=== PATIENT | male | born 1955 | race Caucasian/White ===

== ENCOUNTER 2016-11-18 22:41 | Emergency (ER) | payer BC ==
[2016-11-18 22:48] VITALS: BP 161/84; PULSE 72; RESP 16; TEMP 98.4
[2016-11-18] MEDS ORDERED: HYDROcodone/APAP 5-325MG 1 EACH TAB PO STA (23:02)
[2016-11-18] MEDS ORDERED: AMOXIC-POT CLAV 875MG STARTER 2 EACH TABLET PO STA (23:02)
--- NOTE | 2016-11-18 23:07 | ED ---
General Adult HPI - General Chief complaint: Animal Bite Stated complaint: Dog Bite Time Seen by Provider: 11/18/16 22:53 Source: patient, RN notes reviewed Mode of arrival: ambulatory Limitations: no limitations - History of Present Illness Initial comments: 61-year-old male presents to the emergency 5 chief complaint of left forearm dog bite. Patient states he was breaking up his dog's from Saturday he got bit to the arm. Patient states his dog is up-to-date on vaccinations. Patient states he is at [place] tetanus. Patient states he has pain around the arm. Patient denies any change in range of motion. Patient states moderate there is no radiation patient denies any weakness to the arm. Patient states he was concerned about infection so he thought that he should be evaluated. Patient denies any recent fever, chills, shortness of breath, chest pain, back pain, abdominal pain, nausea vomiting, numbness or tingling, dysuria or hematuria, constipation or diarrhea, headaches or visual changes, or any other current symptoms. - Related Data Previous Rx's Medication Instructions Recorded Amoxicillin/Potassium Clav 1 tab PO Q12HR #20 tab 11/18/16 [Augmentin 875-125 Tablet] Allergies Allergy/AdvReac Type Severity Reaction Status Date / Time No Known Allergies Allergy Verified 11/18/16 22:47 Review of Systems ROS Statement: Those systems with pertinent positive or pertinent negative responses have been documented in the HPI. ROS Other: All systems not noted in ROS Statement are negative. Past Medical History Past Medical History: Hypertension, Myocardial Infarction ([place]) History of Any Multi-Drug Resistant Organisms: None Reported Past Surgical History: Heart Catheterization With Stent Additional Past Surgical History / Comment(s): sinuses, deviated septum, skin graft of finger. Past Psychological History: No Psychological Hx Reported Smoking Status: Never smoker Past Alcohol Use History: None Reported Past Drug Use History: None Reported General Exam - General Exam Comments Initial Comments: General: The patient is awake and alert, in no distress, and does not appear acutely ill. Neck: The neck is supple, there is no tenderness. Cardiovascular: There is a regular rate and rhythm. No murmur, rub or gallop is appreciated. Respiratory: Lungs are clear to auscultation, respirations are non-labored, breath sounds are equal. No wheezes, stridor, rales, or rhonchi. Musculoskeletal: Full range of motion of left wrist and left forearm sensation intact with 2+ pulses. Left upper extremity. Patient appears to have 4 puncture wounds on left forearm and a 4 cm laceration to the left forearm. Neurological: CN II-XII intact, There are no obvious motor or sensory deficits. Coordination appears grossly intact. Speech is normal. Skin: Skin is warm and dry and no rashes or lesions are noted. Psychiatric: Normal mood and affect. Limitations: no limitations Course Vital Signs 11/18/16 22:43 Temperature 98.4 F Pulse Rate 72 Respiratory 16 Rate Blood Pressure 161/84 O2 Sat by Pulse 98 Oximetry Medical Decision Making - Medical Decision Making 61-year-old male presents for diabetic to left arm. Patient underwent irrigation to the left forearm. At this time patient's laceration is superficial not requiring suturing and point wounds were thoroughly clean. This and we will start patient on Augmentin for home. We discussed follow-up with his doctor we discussed return parameters. We discussed x-ray results and follow-up and all questions. He stated that he understood this plan. This time we will be discharged home. - Radiology Data Radiology results: image reviewed Interpreted by me: Interpreted by me: Left forearm xray: 2 view, no fracture, no dislocation, no bony lesions, no radiopaque foreign bodies, no soft tissue damage. Waiting official radiology read. Disposition Clinical Impression: Dog bite of left forearm Disposition: HOME SELF-CARE Condition: Stable Instructions: Animal Bite (ED) Additional Instructions: Please use medication as discussed. Please follow up with family doctor if symptoms have not improved over the next two days. Please return to the emergency room if your symptoms increase or worsen or for any other concerns. Prescriptions: Amoxicillin/Potassium Clav [Augmentin 875-125 Tablet] 1 tab PO Q12HR #20 tab Referrals: Ken Lima MD [STAFF PHYSICIAN] - 1-2 days Time of Disposition: 23:32
--- NOTE | 2016-11-18 23:36 | XR ---
Exam: XR LEFT FOREARM History: Pain. Dog bite to mid left forearm. Comparison: None provided. Technique: 2 views. Findings: No acute displaced fracture or dislocation. No radiopaque foreign body appreciated. There is prominent subcutaneous edema overlying the forearm. Questionable emphysema of the soft tissues. Impression: Findings suggesting infection such as cellulitis. Question soft tissue emphysema. Consider cross-sectional imaging with contrast and there is high clinical concern for underlying abscess or gas forming infection.
== END 2016-11-18 23:50 | disposition home or self-care (01) ==
LOC: EC 22:41
DX: S51.852A Open bite of left forearm, initial encounter (principal); W54.0XXA Bitten by dog, initial encounter; Y93.89 Activity, other specified
CPT/HCPCS: 99283

== ENCOUNTER → 2018-06-27 | Outpatient (CLI) | payer SELFPAY ==
[2018-06-30 11:01] LABS: LDL Cholesterol,Calculated 59.2; VLDL Calculation 18.8
== END | disposition home or self-care (01) ==
LOC: LABWHC1 09:43
PROVIDERS: ATTEND Nurse Practitioner Adult Health
DX: E78.00 Pure hypercholesterolemia, unspecified (principal)
CPT/HCPCS: 36415; 80061

== ENCOUNTER 2021-02-09 12:45 | Emergency (ER) | payer OTHER ==
[2021-02-09 13:24] VITALS: PULSE 57; RESP 18; TEMP 98
[2021-02-09] MEDS ORDERED: SODIUM CHLORIDE 0.9% 1,000 ML IV STA (13:58)
--- NOTE | 2021-02-09 14:00 | ED ---
General Adult HPI - General Chief complaint: Extremity Injury, Upper Stated complaint: lt shoulder pain, SOB Time Seen by Provider: 02/09/21 13:43 Source: patient Mode of arrival: ambulatory Limitations: no limitations - History of Present Illness Initial comments: 65-year-old male with a past medical history of hypertension, [place] presents to the emergency room for a chief complaint of high blood pressure and left shoulder pain. Patient states his blood pressure has been higher over the past few days. He has been taking his medication as directed however he has been taking it several times a day and it seems a higher than normal. Patient states he was going to go see his primary care doctor for this but when he woke up this morning he had left shoulder pain. He does not recall injuring the shoulder. He denies any chest pain or shortness of breath. Patient has no other complaints at this time including shortness of breath, chest pain, abdominal pain, nausea or vomiting, headache, or visual changes. - Related Data Home Medications Medication Instructions Recorded Confirmed Aspirin 81 mg PO DAILY 11/10/19 11/10/19 Furosemide [Lasix] 40 mg PO DAILY 11/10/19 11/10/19 Metoprolol Tartrate [Lopressor] 100 mg PO BID 11/10/19 11/10/19 Pravastatin Sodium [Pravachol] 40 mg PO DAILY 11/10/19 11/10/19 Spironolactone 25 mg PO DAILY 11/10/19 11/10/19 amLODIPine BESYLATE 5 mg PO BID 11/10/19 11/10/19 Allergies Allergy/AdvReac Type Severity Reaction Status Date / Time No Known Allergies Allergy Verified 02/09/21 13:21 Review of Systems ROS Statement: Those systems with pertinent positive or pertinent negative responses have been documented in the HPI. ROS Other: All systems not noted in ROS Statement are negative. Past Medical History Past Medical History: Hypertension, Myocardial Infarction ([place]) Last Myocardial Infarction Date:: 2003 History of Any Multi-Drug Resistant Organisms: None Reported Past Surgical History: Heart Catheterization With Stent Additional Past Surgical History / Comment(s): sinuses, deviated septum, skin graft of finger,heart stent x1 Past Anesthesia/Blood Transfusion Reactions: No Reported Reaction Additional Past Anesthesia/Blood Transfusion Reaction / Comment(s): no hx blood transfusion Date of Last Stent Placement:: 2003 Past Psychological History: No Psychological Hx Reported Smoking Status: Never smoker Past Alcohol Use History: None Reported Past Drug Use History: None Reported - Past Family History Mother Family Medical History: No Reported History Father Family Medical History: Cancer Additional Family Medical History / Comment(s): skin CA General Exam Limitations: no limitations General appearance: alert, in no apparent distress Head exam: Present: atraumatic Eye exam: Present: normal appearance, PERRL, EOMI. Absent: scleral icterus ENT exam: Present: normal exam, mucous membranes moist Neck exam: Present: normal inspection, full ROM. Absent: tenderness Respiratory exam: Present: normal lung sounds bilaterally. Absent: respiratory distress, wheezes Cardiovascular Exam: Present: regular rate, normal rhythm, normal heart sounds GI/Abdominal exam: Present: soft, normal bowel sounds. Absent: distended, tenderness Extremities exam: Present: full ROM (Full range of motion of the left shoulder), normal capillary refill (Blurry refill less than 2 seconds, radial pulse 2+ left upper extremity). Absent: tenderness Course Vital Signs 02/09/21 13:21 Temperature 98 F Pulse Rate 57 L Respiratory 18 Rate Blood Pressure 151/94 O2 Sat by Pulse 97 Oximetry EKG Findings - EKG Comments: EKG Findings:: Sinus bradycardia, ventricular rate 57, NE interval 292, QTc 451 Medical Decision Making - Medical Decision Making Vitals are stable. Patient is mildly hypertensive. Patient states pain has resolved and he is not having any shoulder pain at this time. Full range of motion. EKG nonischemic. CBC CMP unremarkable. Troponin is negative. Chest x-ray shows no acute cardiopulmonary process. At this time patient is stable for discharge home. He'll follow-up with his doctor. He'll return for any worsening symptoms. - Lab Data Result diagrams: 02/09/21 14:14 02/09/21 14:14 Lab Results 02/09/21 02/09/21 02/09/21 Range/Units 14:14 14:14 14:14 WBC 6.8 (3.8-10.6) k/uL RBC 5.05 (4.30-5.90) m/uL Hgb 16.1 (13.0-17.5) gm/dL Hct 47.0 (39.0-53.0) % MCV 93.2 (80.0-100.0) fL MCH 32.0 (25.0-35.0) pg MCHC 34.4 (31.0-37.0) g/dL RDW 12.2 (11.5-15.5) % Plt Count 198 (150-450) k/uL MPV 7.7 Neutrophils % 70 % Lymphocytes % 20 % Monocytes % 5 % Eosinophils % 3 % Basophils % 1 % Neutrophils # 4.7 (1.3-7.7) k/uL Lymphocytes # 1.4 (1.0-4.8) k/uL Monocytes # 0.3 (0-1.0) k/uL Eosinophils # 0.2 (0-0.7) k/uL Basophils # 0.1 (0-0.2) k/uL Sodium 139 (137-145) mmol/L Potassium 4.7 (3.5-5.1) mmol/L Chloride 108 H (98-107) mmol/L Carbon Dioxide 21 L (22-30) mmol/L Anion Gap 10 mmol/L BUN 15 (9-20) mg/dL Creatinine 0.92 (0.66-1.25) mg/dL Est GFR (CKD-EPI)AfAm >90 (>60 ml/min/1.73 sqM) Est GFR (CKD-EPI)NonAf 88 (>60 ml/min/1.73 sqM) Glucose 91 (74-99) mg/dL Calcium 9.3 (8.4-10.2) mg/dL Total Bilirubin 1.6 H (0.2-1.3) mg/dL AST 30 (17-59) U/L ALT 20 (4-49) U/L Alkaline Phosphatase 70 (38-126) U/L Troponin I <0.012 (0.000-0.034) ng/mL Total Protein 8.2 (6.3-8.2) g/dL Albumin 4.6 (3.5-5.0) g/dL Disposition Clinical Impression: Hypertension, Shoulder pain, left Disposition: HOME SELF-CARE Condition: Good Instructions (If sedation given, give patient instructions): Chronic Hypertension (ED) Additional Instructions: Please follow-up with your primary care provider and take them a log of your blood pressures. If you have any worsening symptoms such as chest pain or short ness of breath return to the emergency room. Is patient prescribed a controlled substance at d/c from ED?: No Referrals: Brianna Downing MD [REFERRING] - 1-2 days Time of Disposition: 15:48
[2021-02-09 14:28] LABS: Basophils # (A) 0.1 k/uL (0-0.2); Basophils % (A) 1 %; Eosinophils # (A) 0.2 k/uL (0-0.7); Eosinophils % (A) 3 %; HGB 16.1 gm/dL (13.0-17.5); Lymphocytes # (A) 1.4 k/uL (1.0-4.8); Lymphocytes % (A) 20 %; MCHC 34.4 g/dL (31.0-37.0); MCV 93.2 fL (80.0-100.0); Mean Platelet Volume 7.7; Monocytes # (A) 0.3 k/uL (0-1.0); Monocytes % (A) 5 %; Neutrophils # (A) 4.7 k/uL (1.3-7.7); Neutrophils % (A) 70 %; Platelet Count 198 k/uL (150-450); RBC 5.05 m/uL (4.30-5.90); RDW 12.2 % (11.5-15.5); WBC 6.8 k/uL (3.8-10.6)
--- NOTE | 2021-02-09 14:34 | XR ---
EXAMINATION TYPE: XR chest 2V DATE OF EXAM: 02/09/2021 COMPARISON: Chest x-ray 11/21/2011 HISTORY: Shoulder pain, hypertension TECHNIQUE: Frontal and lateral views of the chest are obtained. FINDINGS: There is no focal air space opacity, pleural effusion, or pneumothorax seen. The cardiac silhouette size is within normal limits. The osseous structures are intact other thoracic spinal. IMPRESSION: No acute cardiopulmonary process.
[2021-02-09 14:59] LABS: ALT 20 U/L (4-49); AST 30 U/L (17-59); African American GFR (CKD) >90 (>60 ml/min/1.73 sqM); Alkaline Phosphatase 70 U/L (38-126); Anion Gap 10 mmol/L; Blood Urea Nitrogen 15 mg/dL (9-20); Calcium 9.3 mg/dL (8.4-10.2); Carbon Dioxide 21 mmol/L (22-30); Chloride 108 mmol/L (98-107); Glucose 91 mg/dL (74-99); Non-African American GFR(CKD) 88 (>60 ml/min/1.73 sqM); Sodium 139 mmol/L (137-145); Total Bilirubin 1.6 mg/dL (0.2-1.3); Total Protein 8.2 g/dL (6.3-8.2)
[2021-02-09 15:00] LABS: Potassium 4.7 mmol/L (3.5-5.1)
[2021-02-09 15:02] LABS: Albumin 4.6 g/dL (3.5-5.0)
[2021-02-09 16:23] VITALS: BP 154/95
== END 2021-02-09 16:23 | disposition home or self-care (01) ==
LOC: EC 12:45
DX: M25.512 Pain in left shoulder (principal); I10 Essential (primary) hypertension; I25.2 Old myocardial infarction
CPT/HCPCS: 36415; 71046; 80053; 84484; 85025; 93005; 96360; 99284

== ENCOUNTER 2022-05-03 19:46 | Emergency (ER) | payer MEDICARE, OTHER ==
[2022-05-03 20:56] VITALS: BP 180/100; PULSE 70; RESP 16; TEMP 98
[2022-05-03 21:28] LABS: Basophils # (A) 0.1 k/uL (0-0.2); Basophils % (A) 1 %; Eosinophils # (A) 0.2 k/uL (0-0.7); Eosinophils % (A) 2 %; HCT 44.1 % (39.0-53.0); HGB 15.5 gm/dL (13.0-17.5); Lymphocytes # (A) 1.9 k/uL (1.0-4.8); Lymphocytes % (A) 27 %; MCH 31.6 pg (25.0-35.0); MCHC 35.1 g/dL (31.0-37.0); Mean Platelet Volume 7.9; Monocytes # (A) 0.6 k/uL (0-1.0); Monocytes % (A) 8 %; Neutrophils # (A) 4.2 k/uL (1.3-7.7); Neutrophils % (A) 59 %; Platelet Count 222 k/uL (150-450); RDW 12.4 % (11.5-15.5)
[2022-05-03 21:59] LABS: Partial Thromboplastin Time 25.2 sec (22.0-30.0); Prothrombin Time 10.2 sec (9.0-12.0)
[2022-05-03 22:21] LABS: Albumin 4.4 g/dL (3.5-5.0); Calcium 9.6 mg/dL (8.4-10.2); Potassium 3.8 mmol/L (3.5-5.1); Total Bilirubin 0.8 mg/dL (0.2-1.3); Total Protein 7.8 g/dL (6.3-8.2)
--- NOTE | 2022-05-03 23:15 | XR ---
EXAMINATION TYPE: XR chest 2V DATE OF EXAM: 05/03/2022 COMPARISON: 02/09/2021 HISTORY: Chest pain TECHNIQUE: 2 views FINDINGS: Heart is normal. Lungs are clear. Diaphragm is normal. Bony thorax is intact. IMPRESSION: Normal chest. No change.
[2022-05-03 23:28] LABS: Appearance,Urine Clear (Clear); Bilirubin,Urine Negative (Negative); Blood,Urine Negative (Negative); Color,Urine Yellow; Glucose,Urine (UA) Negative (Negative); Ketones,Urine Negative (Negative); Leukocyte Esterase,Urine Negative (Negative); Nitrite,Urine Negative (Negative); PH, Urine 5.5 (5.0-8.0); Protein,Urine Negative (Negative); Specific Gravity,Urine 1.022 (1.001-1.035); Urobilinogen,Urine <2.0 mg/dL (<2.0)
== END 2022-05-04 00:34 | disposition left against medical advice (07) ==
LOC: EC 19:46
DX: Z53.21 Procedure and treatment not carried out due to patient leaving prior to being seen by health care provider (principal)
CPT/HCPCS: 36415; 71046; 80053; 81003; 83735; 84484; 85025; 85610; 85730; 93005; 99499